=== PATIENT | male | born 1990 | race African-American/Black ===

== ENCOUNTER 2023-11-19 18:00 | Emergency (ER) | payer MEDICAID ==
[~2023-11-19] VITALS: Ht 175.3 cm; Wt 59.0 kg
[2023-11-19 18:07] VITALS: BP 148/88; TEMP 97.9; O2SAT 98
[2023-11-19] MEDS ORDERED: HYDR-4209 PO (19:12)
[2023-11-19] MEDS ORDERED: AMOX-430 PO (19:12)
[2023-11-19] MEDS ORDERED: HYDROCODONE/APAP 5/325MG TABLET ONE (19:19)
[2023-11-19] MEDS ORDERED: AMOX/CLAVULANATE 875 MG TABLET ONE (19:20)
[2023-11-19] MEDS: AMOX/CLAVULANATE 875 MG TABLET PO ONE (19:26)
[2023-11-19] MEDS: HYDROCODONE/APAP 5/325MG TABLET PO ONE (19:27)
== END 2023-11-19 19:28 | disposition home or self-care (01) ==
LOC: ER 18:04
DX: K04.7 Periapical abscess without sinus (principal); Z79.899 Other long term (current) drug therapy

== ENCOUNTER 2024-03-19 16:51 | Emergency (ER) | payer MEDICAID ==
[~2024-03-19] VITALS: Ht 175.3 cm; Wt 61.2 kg
[~2024-03-19 16:51] MED LIST: AMOX-430 PO; HYDR-4209 PO
[2024-03-19] MEDS ORDERED: IBUP-1490 PO (17:32)
[2024-03-19] MEDS ORDERED: AMOX500C2 PO (17:32)
[2024-03-19] MEDS ORDERED: AMOXICILLIN TRIHYDRATE 250 MG CAPSULE ONE (17:40)
[2024-03-19] MEDS ORDERED: IBUPROFEN 400 MG TABLET ONE (17:40)
[2024-03-19] MEDS: IBUPROFEN 400 MG TABLET PO ONE (17:45)
[2024-03-19] MEDS: AMOXICILLIN TRIHYDRATE 500 MG CAPSULE PO ONE (17:45)
[2024-03-19 17:48] VITALS: BP 128/84; TEMP 98.4; O2SAT 100
== END 2024-03-19 17:48 | disposition home or self-care (01) ==
LOC: ER 16:55
DX: K04.7 Periapical abscess without sinus (principal); Z79.899 Other long term (current) drug therapy

== ENCOUNTER 2024-10-30 21:51 | Emergency (ER) | payer MEDICAID ==
[~2024-10-30] VITALS: Ht 175.3 cm; Wt 61.2 kg
[~2024-10-30 21:51] MED LIST changes: +AMOX500C2 PO; +IBUP-1490 PO
[2024-10-30 22:32] VITALS: BP 128/79; TEMP 98.3; O2SAT 98
[2024-10-30] MEDS ORDERED: AMOX-430 PO (22:49)
== END 2024-10-30 22:52 | disposition home or self-care (01) ==
LOC: ER 21:59
DX: K04.7 Periapical abscess without sinus (principal)